=== PATIENT | female | born 1955 | race Caucasian/White ===

== ENCOUNTER → 2017-11-04 | Outpatient (CLI) | payer OTHER | LOC: MHCPAIN 14:48 | DX: G89.29 Other chronic pain (principal); M47.812 Spondylosis without myelopathy or radiculopathy, cervical region; R51 Headache | CPT/HCPCS: G0463 ==

== ENCOUNTER 2018-03-06 15:43 | Emergency (ER) | payer SELFPAY ==
[~2018-03-06] VITALS: Ht 157.5 cm; Wt 135.0 kg
[2018-03-06 16:01] VITALS: BP 162/113; TEMP 96.7
[2018-03-06] MEDS ORDERED: FLEXERIL 1010 MG/TAB PO (17:19)
[2018-03-06 17:27] VITALS: PULSE 83
== END 2018-03-06 17:27 | disposition home or self-care (01) ==
LOC: COL.ER 15:43
DX: G89.29 Other chronic pain (principal); M54.2 Cervicalgia; E66.9 Obesity, unspecified
CPT/HCPCS: J3010

== ENCOUNTER → 2018-09-17 | Outpatient (CLI) | payer MEDICARE, MEDICAID ==
[~2018-09-17] MED LIST: FLEXERIL 1010 MG/TAB PO
== END ==
LOC: COL.LAB 14:45
DX: H92.01 Otalgia, right ear (principal); R07.0 Pain in throat